=== PATIENT | male | born 1965 | race Two or more races ===

== ENCOUNTER 2020-12-02 06:33 | Day surgery (SDC) | payer BC ==
[~2020-12-02] VITALS: Ht 175.3 cm; Wt 97.2 kg
[~2020-12-02 06:33] MED LIST: ATOR20TA58 PO; ESOM40CA PO; GLUC1TAB26 PO; HYDR-2761 PO; HYDROmorphone 2 MG/ML VIAL IVP PRN; IV RINGERS,LACTATED 1000ML 1,000 ML IV SCH; METF500T16 PO; MORPHINE SULFATE 2 MG/ML INJ. IVP PRN; NAPR220T70 PO; PROCHLORPERAZINE 10 MG/2 ML VIAL. IVP PRN; fentaNYL PF VIAL 100 MCG/2 ML VIAL IVP PRN
[2020-12-02 06:54] VITALS: BP 138/90
[2020-12-02] MEDS ORDERED: INSULIN LISPRO 100 UNIT/ML 3ML VIAL for OP,RR ONLY. SQ ONE (07:10)
[2020-12-02] MEDS ORDERED: BUPIVACAINE-EPI 0.5% 30 ML VIAL KIT. ONE (07:11)
[2020-12-02] MEDS ORDERED: INSULIN LISPRO 100 UNIT/ML 3ML VIAL for OP,RR ONLY. SQ PRN (07:15)
[2020-12-02] MEDS ORDERED: fentaNYL PF VIAL 100 MCG/2 ML VIAL ONE ×2 (07:28→09:03)
[2020-12-02] MEDS ORDERED: PROPOFOL 10 MG/ML (20ML) VIAL. IV ONE (07:29)
[2020-12-02] MEDS ORDERED: LIDOCAINE 2% PF 5 ML VIAL. ONE (07:29)
[2020-12-02] MEDS ORDERED: HYDR-2765 PO (07:30)
--- NOTE | 2020-12-02 07:32 | DISCH ---
DISCHARGE INSTRUCTIONS Condition on Discharge Condition on Discharge: Stable Activity After Discharge Activity Instructions for Disc: Progressive ambulation Weight Bearing Status after Di: As tolerated Diet after Discharge Diet after Discharge: Regular Wound Incision Care Wound/Incision Care: Change dressing (Remove dressing in 2 days may then shower no soaking until sutures removed) Contacting the DRRick after DC Call your doctor for: Concerns you may have Follow-Up Follow up with: Dr. Luis or Kristel 1 week NORMA LUIS MD Dec 02, 2020 07:31
[2020-12-02] MEDS ORDERED: MIDAZOLAM HCL/PF 2 MG/2 ML VIAL. ONE (07:47)
[2020-12-02] MEDS ORDERED: SEVOFLURANE 31 TO 60 MINUTES. IH ONE (08:39)
[2020-12-02] MEDS ORDERED: DEXAMETHASONE SOD PHOS 4 MG/ML VIAL ONE (08:39)
[2020-12-02] MEDS ORDERED: ONDANSETRON PF 4 MG/2 ML VIAL. ONE (08:39)
[2020-12-02 09:15] VITALS: BP 131/87
[2020-12-02] MEDS ORDERED: HYDROcodone/APAP 7.5/325MG 1 TAB TABLET PO ONE (09:30)
--- NOTE | 2020-12-02 16:02 | PDOC4 ---
Operative Note Operative Note Date of surgery: 12/02/2020 Preoperative diagnosis: Right knee medial meniscus tear Postoperative diagnosis: Same plus chondral flap tear trochlea Operative procedure: Right knee arthroscopy partial medial meniscectomy and chondroplasty trochlea Surgeon: Janelle Gear Shaper: Mitesh cuello Anesthesia: General Estimated blood loss: 5 cc Complications: None Operative indications: Please see my preoperative clinic note for detailed operative indications and note that I had covered with him through an translator interpreter the structure and function of meniscus the significance of the tear the inability of the tear to heal due to blood supply issues and the possibility of ongoing nonoperative treatment and the typical results of that as well as operative risks of infection nerve or blood vessel damage continued pain medical or other anesthetic complications among others, specifically the fact that I cannot undo any degenerative changes present in the knee only the mechanical symptoms of the meniscus itself. All his questions were answered and he does wish to proceed with surgical evaluation and treatment Operative text: Patient was identified procedure verified patient placed in the supine position on the operating table. After adequate amounts of general anesthesia were administered the right lower extremity was prepped and draped in standard sterile fashion with a thigh tourniquet. After timeout was performed patient procedure identified and verified the right lower extremity was exsanguinated by Esmarch bandage tourniquet inflated to 250 mmHg a lateral portal was established medial portal established using spinal needle localization and the knee joint was systematically examined. Medial meniscus was found to have a displaceable tear of the posterior horn extending into the body which was trimmed back to stable tissue using arthroscopic punch and shaver. He had some mild chondromalacia over the medial compartment which did not require debridement. ACL was intact as was the lateral meniscus. He did have a chondral flap tear of the trochlear groove that was unstable and trimmed back to stable tissue and was not full-thickness in nature. The knee joint was again toward to ensure no loose bodies were present and was then drained of arthroscopic fluid fat pad and portal areas injected with local anesthetic and portals closed with nylon suture. Sterile dressings were placed and patient was returned to recovery room stable condition having tolerated procedure well. Mitesh cuello was present for the procedure and assisted in patient positioning prepping draping closure and dressings NORMA ESTRADA MD Dec 02, 2020 16:02
== END 2020-12-02 10:38 | disposition home or self-care (01) ==
LOC: SURG 06:33
PROVIDERS: ATTEND Orthopaedic Surgery
DX: S83.241A Other tear of medial meniscus, current injury, right knee, initial encounter (principal); M94.261 Chondromalacia, right knee; E11.9 Type 2 diabetes mellitus without complications; E78.00 Pure hypercholesterolemia, unspecified; K21.9 Gastro-esophageal reflux disease without esophagitis; Z79.899 Other long term (current) drug therapy; Z79.84 Long term (current) use of oral hypoglycemic drugs; Z98.890 Other specified postprocedural states; Z88.8 Allergy status to other drugs, medicaments and biological substances; X58.XXXA Exposure to other specified factors, initial encounter; Y93.89 Activity, other specified; Y92.89 Other specified places as the place of occurrence of the external cause; Y99.8 Other external cause status
CPT/HCPCS: 29881; 82962; 97110; 97116; 97162; A4930; J0690; J1100; J1815; J2250; J2405; J2704; J3010; A4223